=== PATIENT | male | born 1965 ===

== ENCOUNTER 2019-01-11 13:48 | Emergency (ER) | payer MEDICAID, OTHER ==
[2019-01-11 13:48] VITALS: O2SAT 100
[2019-01-11 14:10] VITALS: BP 129/85; PULSE 60; RESP 16; TEMP 97.8
[2019-01-11] MEDS ORDERED: HEPATITIS B VACCINE IM ONE ×2 (15:10→15:15)
[2019-01-11] MEDS ORDERED: [UNRECOGNIZED DRUG - OTHER] IM ONE ×2 (15:10→15:15)
[2019-01-11] MEDS ORDERED: TDAP VACCINE 0.5 ML SUS IM ONE ×2 (15:10→15:12)
[2019-01-13 07:42] LABS: *HEPATITIS B SURG AG Nonreactive (Nonreactive); *HEPATITIS C ANTIBODY Nonreactive (Nonreactive); *HIV 1/2 AB/AG COMBO Nonreactive (Nonreactive)
[2019-01-13 09:13] LABS: *HEP B CORE AB TOTAL Nonreactive (Nonreactive)
== END 2019-01-11 15:27 | disposition home or self-care (01) | DRG 605 ==
LOC: ED 13:48
DX: S61.239A Puncture wound without foreign body of unspecified finger without damage to nail, initial encounter (principal); W46.0XXA Contact with hypodermic needle, initial encounter
CPT/HCPCS: 90471; 90715; 90746; 99282